=== PATIENT | male | born 1945 | race Caucasian/White ===

== ENCOUNTER 2018-05-10 10:39 | Outpatient (CLI) | payer MEDICARE, OTHER ==
--- NOTE | 2018-05-12 01:36 | XRAY Report ---
Reason: tendinitis Procedure Date: 05/10/2018 Accession Number: [id number] / [id number] Procedure: XR - Shoulder 3 View LT CPT Code: FULL RESULT: EXAM: LEFT SHOULDER RADIOGRAPHY EXAM DATE: 05/10/2018 11:32 AM. CLINICAL HISTORY: Tendinitis. Fell on outstretched hand injury a few weeks ago, shoulder is still pretty painful to move. COMPARISON: None. TECHNIQUE: 3 views. FINDINGS: Moderate acromioclavicular degenerative joint disease. Mild glenohumeral degenerative joint disease with osteophytes. No evidence for acute fracture. No dislocation. Soft tissue appears unremarkable. 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 No acute fracture or dislocation. RADIA
== END 2018-05-10 10:40 | disposition home or self-care (01) ==
LOC: DI 10:39
PROVIDERS: ATTEND Specialist
DX: M19.012 Primary osteoarthritis, left shoulder (principal); M75.92 Shoulder lesion, unspecified, left shoulder

== ENCOUNTER 2018-07-02 07:02 | Outpatient (CLI) | payer MEDICARE, OTHER ==
--- NOTE | 2018-07-02 15:30 | MRI Report ---
Reason: CONTUSION OF LEFT SHOULDER, SUBSEQUENT ENCOUNTER Procedure Date: 07/02/2018 Accession Number: [id number] / [id number] Procedure: MRI - Shoulder LT W/O CPT Code: FULL RESULT: EXAM: LEFT SHOULDER MRI WITHOUT CONTRAST EXAM DATE: 07/02/2018 07:37 AM. CLINICAL HISTORY: CONTUSION OF LEFT SHOULDER, SUBSEQUENT ENCOUNTER. COMPARISON: None. TECHNIQUE: Multiplanar, multisequence T1-weighted and fluid-sensitive sequences of the shoulder without contrast. Other: None. FINDINGS: Acromioclavicular Region: The acromion is type II. Mild acromioclavicular joint osteoarthritis, with inferior marginal osteophytes indenting the supraspinatus tendon within the outlet. Mild capsular hypertrophy. The coracoacromial and coracoclavicular ligaments are intact. Small amount of fluid within the subacromial-subdeltoid bursa. Glenohumeral Region: No subluxation. No effusion or loose bodies. The articular cartilage is unremarkable. The glenohumeral ligaments and joint capsule are unremarkable. Bone Marrow: No fracture, marrow edema or bone lesions. Labrum: The labrum is unremarkable on this nonarthrographic study. Musculature/Rotator Cuff: Deep partial thickness, full width tear of the distal supraspinatus tendon with likely full-thickness perforation at the anterior margin of the tendon (series 701 image 3). Infraspinatus tendon is intact. Teres minor is intact. Partial-thickness articular sided tear of the cranial fibers of the subscapularis tendon. No edema or fatty atrophy. Biceps Tendon: Medial subluxation of the long head biceps tendon from the bicipital groove with a partial tear at the level of the biceps joseph. Mild intra-articular biceps tendinosis. Extra-articular biceps tendon is normal. Other: The subcutaneous tissues are unremarkable. IMPRESSION: 1. Deep partial thickness, full width tear of the supraspinatus tendon with likely full-thickness perforation at the anterior fibers. 2. Partial-thickness articular sided tear of the cranial fibers of the subscapularis tendon. 3. Partial tear of the long head biceps tendon at the level of the biceps joseph, with medial subluxation from the bicipital groove and mild intra-articular biceps tendinosis. 4. Mild acromioclavicular joint osteoarthritis and subacromial-subdeltoid bursitis. RADIA
== END 2018-07-02 07:03 | disposition home or self-care (01) ==
LOC: DI 07:02
PROVIDERS: ATTEND Specialist
DX: S40.012D Contusion of left shoulder, subsequent encounter (principal); M75.102 Unspecified rotator cuff tear or rupture of left shoulder, not specified as traumatic; S46.812A Strain of other muscles, fascia and tendons at shoulder and upper arm level, left arm, initial encounter; M19.012 Primary osteoarthritis, left shoulder; M75.52 Bursitis of left shoulder

== ENCOUNTER 2020-07-26 12:30 | Outpatient (CLI) | payer MEDICARE | END 2020-07-26 23:59 | disposition home or self-care (01) | LOC: COV 12:30 | PROVIDERS: ATTEND Surgery | DX: Z01.812 Encounter for preprocedural laboratory examination (principal); R19.5 Other fecal abnormalities; E11.9 Type 2 diabetes mellitus without complications; R10.10 Upper abdominal pain, unspecified; Z20.822 Contact with and (suspected) exposure to COVID-19 ==

== ENCOUNTER 2020-07-29 07:09 | Day surgery (SDC) | payer MEDICARE ==
[2020-07-29] MEDS ORDERED: LACTATED RINGERS 1,000 ML IV ONE ×2 (07:14→09:22)
[2020-07-29] MEDS ORDERED: MIDAZOLAM 2 MG/2 ML VIAL ONE ×2 (08:16→09:06)
[2020-07-29] MEDS ORDERED: fentaNYL 250 MCG/5 ML VIAL ONE (08:16)
[2020-07-29] MEDS ORDERED: LIDO GARGLE 30 ML BOTTLE ONE (08:35)
[2020-07-29] MEDS ORDERED: LIDO GARGLE 30 ML BOTTLE TOP ONE (08:35)
[2020-07-29] MEDS ORDERED: BENZOCAINE/TETRACAINE/BUTAMBEN 20 GM TOP ONE (08:35)
[2020-07-29 09:37] VITALS: BP 126/70
== END 2020-07-29 07:10 | disposition home or self-care (01) ==
LOC: SDS 07:09
PROVIDERS: ATTEND Surgery
DX: R19.5 Other fecal abnormalities (principal); R10.13 Epigastric pain; K57.30 Diverticulosis of large intestine without perforation or abscess without bleeding; Z98.84 Bariatric surgery status; Z87.891 Personal history of nicotine dependence
CPT/HCPCS: 43235; 45378; A9270; J3010; J7120

== ENCOUNTER 2021-04-25 07:47 | Outpatient (CLI) | payer MEDICARE ==
[2021-04-25] MEDS ORDERED: IOVERSOL 320 100 ML VIAL IVP ONE ×2 (08:08→09:35)
[2021-04-25] MEDS ORDERED: IOPAMIDOL-300 50 ML VIAL ONE (08:08)
[2021-04-25 08:31] LABS: CREATININE 1.5 mg/dL (0.6-1.2)
[2021-04-25] MEDS ORDERED: IOPAMIDOL-300 50 ML VIAL PO ONE (09:34)
--- NOTE | 2021-04-25 17:03 | CT Report ---
PROCEDURE: Abdomen/Pelvis W INDICATIONS: RUQ ABD PAIN CONTRAST: IV CONTRAST: Optiray 320 ml: 100 PO CONTRAST: Isovue 300 ml50 TECHNIQUE: After the administration of weight appropriate dose of intravenous contrast, 5 mm thick sections acqu ired from the diaphragms to the symphysis. 5 mm thick coronal and sagittal reformats were acquired. For radiation dose reduction, the following was used: automated exposure control, adjustment of mA and/or kV according to patient size. COMPARISON: 01/17/2015. FINDINGS: Image quality: Excellent. ABDOMEN: Lung bases: Lung bases are clear. Heart size is normal. Small hiatal hernia. Coronary arterial athe rosclerosis Solid organs: Liver and spleen are normal in size and enhancement. Hepatic steatosis. Gallbladder is surgically absent. Biliary system is non dilated. Pancreas enhances normally. No adrenal nodules. Kidneys demonstrate normal size and enhancement, without hydronephrosis. Redemonstration of partia lly exophytic superior pole right renal cyst. Peritoneum and bowel: Bowel loops demonstrate normal wall thickness and caliber. Stable appearance o f postsurgical changes of prior gastric bypass procedure. Scattered colonic diverticulosis without ac lor diverticulitis. No free fluid or air. Nodes and vessels: No retroperitoneal or mesenteric adenopathy by size criteria. Aorta and inferior vena cava are normal in size. Miscellaneous: No ventral hernias. PELVIS: Genitourinary: Bladder wall thickness is normal. Miscellaneous: No inguinal hernias or adenopathy. Bones: No suspicious bony lesions. No acute vertebral body compression fractures. Multilevel lumbar spondylosis. IMPRESSION: 1. CT abdomen and pelvis without acute abnormalities to explain patient's symptoms. 2. Diffuse hepatic steatosis. Consider correlation with liver function tests. 3. Status post cholecystectomy. 4. Small hiatal hernia. 5. Stable postsurgical changes from prior gastric bypass procedure. 6. Colonic diverticulosis without evidence for acute diverticulitis. Reviewed by: Darshan Wolf MD on 04/25/2021 4:02 PM [facility] Approved by: Darshan Wolf MD on 04/25/2021 4:02 PM [place] Station ID: [id number]
== END 2021-04-25 07:48 | disposition home or self-care (01) ==
LOC: LAB 07:47
PROVIDERS: ATTEND Student in an Organized Health Care Education/Training Program
DX: R10.11 Right upper quadrant pain (principal); K76.0 Fatty (change of) liver, not elsewhere classified; Z90.49 Acquired absence of other specified parts of digestive tract; K44.9 Diaphragmatic hernia without obstruction or gangrene; Z98.84 Bariatric surgery status; K57.30 Diverticulosis of large intestine without perforation or abscess without bleeding
CPT/HCPCS: 36415; 74177; 82565; Q9967

== ENCOUNTER 2023-06-28 11:32 | Outpatient (CLI) | payer MEDICARE ==
[2023-06-28 11:53] LABS: CREATININE 2.5 mg/dL (0.6-1.3)
--- NOTE | 2023-06-28 16:22 | CT Report ---
PROCEDURE: Abdomen/Pelvis WO INDICATIONS: HEMATURIA TECHNIQUE: A CT scan of the abdomen and pelvis was performed without the use of intravenous contrast. Images we re recorded and evaluated at appropriate window settings. Reformats: coronal and sagittal. For radiat ion dose reduction, the following was used: automated exposure control, adjustment of mA and/or kV ac cording to patient size. COMPARISON: CT abdomen and pelvis with contrast on April 25, 2021 FINDINGS: Image quality: Diagnostic. Evaluation of the visceral organs is limited due to the lack of intravenou s contrast. Lower chest: No suspicious pulmonary nodule or consolidation. Partially visualized marked coronary ve ssel calcifications. Small hiatal hernia. Liver: No contour-deforming mass. Tiny calcified granuloma in the right hepatic lobe. Diffuse hypoatt enuation of the liver, better seen on prior contrast-enhanced CT. Gallbladder and biliary tree: Cholecystectomy. No intra or extra hepatic biliary ductal dilatation. Spleen: No splenomegaly. Pancreas: No pancreatic ductal dilation. Adrenals: No adrenal nodule. Kidneys and ureters: No hydronephrosis. No renal cystic lesion which requires follow up. No solid mas s. Right upper pole simple exophytic cyst measuring 2 cm. Bilateral perinephric fat stranding, likely senescent, similar to prior Stomach, bowel and peritoneum: Postsurgical changes of gastric bypass. Small and large bowel is annika l in caliber, without obstruction. Normal appendix (2/75). Colonic diverticulosis, without diverticul itis. Lymph nodes: No central or retroperitoneal adenopathy. Vessels: No infrarenal aortic aneurysm. Moderate calcification of the abdominal aorta. PELVIS Reproductive organs: Mild prostatomegaly. Bladder: No wall thickness, accounting for underdistention. Pelvic lymph nodes: No pelvic adenopathy by size criteria. Bones: No aggressive osseous abnormality. No acute fractures. [id number] degenerative changes a t L4-L5. Other: Tiny fat-containing umbilical hernia. Small left fat-containing inguinal hernia. IMPRESSION: Evaluation of the visceral organs is limited due to the lack of intravenous contrast. 1.No hydronephrosis or obstructing renal stone. 2.Mild prostatomegaly. 3.Nonobstructive bowel. Colonic diverticulosis, without diverticulitis. Reviewed by: Dorina Chen MD on 06/28/2023 4:21 PM PDT Approved by: Dorina Chen MD on 06/28/2023 4:21 PM PDT Station ID: [id number]
== END 2023-06-28 11:33 | disposition home or self-care (01) ==
LOC: LAB 11:32
PROVIDERS: ATTEND Student in an Organized Health Care Education/Training Program
DX: R31.9 Hematuria, unspecified (principal); N40.0 Benign prostatic hyperplasia without lower urinary tract symptoms; K57.30 Diverticulosis of large intestine without perforation or abscess without bleeding
CPT/HCPCS: 36415; 82565